=== PATIENT | male | born 1965 | race American Indian/Alaskan Native ===

== ENCOUNTER 2016-04-04 21:42 | Emergency (ER) | payer SELFPAY ==
[2016-04-05 00:11] VITALS: BP 145/98
[2016-04-05 01:00] LABS: Hematocrit 44.1 % (35.5-45.6); Hemoglobin 14.8 gm/dl (11.8-15.2); Mean Corpuscular HGB Conc 34 % (32-34); Mean Corpuscular Hemoglobin 34 pg (28-32); Mean Corpuscular Volume 100 fl (84-94); Platelet Count 190 K/mm3 (140-440); Red Blood Count 4.39 M/mm3 (3.65-5.03); Red Cell Distribution Width 13.1 % (13.2-15.2); White Blood Count 10.2 K/mm3 (4.5-11.0)
[2016-04-05 01:18] LABS: Anion Gap 19 mmol/L; BUN/Creatinine Ratio 13.33; Blood Urea Nitrogen 12 mg/dL (9-20); Calcium 8.9 mg/dL (8.4-10.2); Carbon Dioxide 24 mmol/L (22-30); Chloride 104.9 mmol/L (98-107); Glucose 89 mg/dL (75-100); Potassium 3.7 mmol/L (3.6-5.0); Sodium 144 mmol/L (137-145)
[2016-04-05 06:47] LABS: Anisocytosis 1+; Basophils % (Manual) 0 % (0.0-1.8); Blastocytes % (Manual) 0 %; Diff Status Complete
--- NOTE | 2016-04-06 01:09 | ED Elopement Review ---
ED Pt Elopement review - Results review Lab results: Laboratory Tests 04/05/16 04/05/16 04/05/16 00:35 00:49 00:49 WBC 10.2 RBC 4.39 Hgb 14.8 Hct 44.1 MCV 100 H MCH 34 H MCHC 34 RDW 13.1 L Plt Count 190 Lymph # Principal Quality Engineer Add Manual Diff Complete Total Counted 100 Seg Neuts % (Manual) 53.0 Band Neutrophils % 3.0 Lymphocytes % (Manual) 29.0 Reactive Lymphs % (Man) 0 Monocytes % (Manual) 12.0 H Eosinophils % (Manual) 2.0 Basophils % (Manual) 0 Metamyelocytes % 1.0 Myelocytes % 0 Promyelocytes % 0 Blast Cells % 0 Nucleated RBC % Not Reportable Seg Neutrophils # Man 5.4 Band Neutrophils # 0.3 Lymphocytes # (Manual) 3.0 Abs React Lymphs (Man) 0.0 Monocytes # (Manual) 1.2 H Eosinophils # (Manual) 0.2 Basophils # (Manual) 0.0 Metamyelocytes # 0.1 Myelocytes # 0.0 Promyelocytes # 0.0 Blast Cells # 0.0 WBC Morphology Not Reportable Hypersegmented Neuts Not Reportable Hyposegmented Neuts Not Reportable Hypogranular Neuts Not Reportable Smudge Cells Not Reportable Toxic Granulation Not Reportable Toxic Vacuolation Not Reportable Dohle Bodies Not Reportable Pelger-Huet Anomaly Not Reportable Jose Angel Rods Not Reportable Platelet Estimate Not Reportable Clumped Platelets Not Reportable Plt Clumps, EDTA Not Reportable Large Platelets Not Reportable Giant Platelets Not Reportable Platelet Satelliting Not Reportable Plt Morphology Comment Not Reportable RBC Morphology Not Reportable Dimorphic RBCs Not Reportable Polychromasia Not Reportable Hypochromasia Not Reportable Poikilocytosis Not Reportable Anisocytosis 1+ Microcytosis Not Reportable Macrocytosis Not Reportable Spherocytes Not Reportable Pappenheimer Bodies Not Reportable Sickle Cells Not Reportable Target Cells Not Reportable Tear Drop Cells Not Reportable Ovalocytes Not Reportable Helmet Cells Not Reportable [place] Bodies Not Reportable [place] Rings Not Reportable Raghavendra Cells Not Reportable Bite Cells Not Reportable Crenated Cell Not Reportable Elliptocytes Not Reportable Acanthocytes (Spur) Not Reportable Rouleaux Not Reportable Hemoglobin C Crystals Not Reportable Schistocytes Not Reportable Malaria parasites Not Reportable Tylor Bodies Not Reportable Hem Pathologist Commnt No Sodium 144 Potassium 3.7 Carbon Dioxide 24 Anion Gap 19 BUN 12 Creatinine 0.9 Estimated GFR > 60 BUN/Creatinine Ratio 13.33 Glucose 89 POC Glucose 95 Calcium 8.9 - Call Back decision Pt Call Back Decision: Call pt to return to ED YI (right upper and lower extremity paresthesia should be further evaluated. Consider imaging)
== END 2016-04-05 02:31 | disposition left against medical advice (07) ==
LOC: ED 21:42
DX: M79.641 Pain in right hand (principal); M79.601 Pain in right arm; M79.671 Pain in right foot; F17.200 Nicotine dependence, unspecified, uncomplicated; Z53.21 Procedure and treatment not carried out due to patient leaving prior to being seen by health care provider
CPT/HCPCS: 36415; 80048; 82962; 85007; 85025